=== PATIENT | female | born 2000 | race Caucasian/White ===

== ENCOUNTER 2024-09-23 05:55 | Inpatient (IN) | payer OTHER ==
[2024-09-23] VITALS (12 sets, daily range): BP systolic 104–152; BP diastolic 68–103
[~2024-09-23] VITALS: Ht 175.3 cm; Wt 95.3 kg
[2024-09-23] MEDS ORDERED: PRENATAL TABLE1 EAC1 PO (06:13)
[2024-09-23] MEDS ORDERED: RINGERS SOLUTION,LACTATED 1,000 ML IV SCH (06:15)
[2024-09-23] MEDS ORDERED: AMPICILLIN SODIUM 2,000 MG VIAL IV ONE (06:15)
[2024-09-23 06:49] LABS: HEMATOCRIT 39.6 % (36.0-45.00); MEAN CELL VOLUME 88.1 fL (80.00-100.00); MEAN CORPUSCULAR HEMOGLOBIN 28.9 pg (27.00-32.0); MEAN CORPUSCULAR HGB CONC 32.8 g/dl (32.0-36.0); PLATELET COUNT 231 K/uL (150-450); RED CELL DISTRIBUTION WIDTH 14.8 % (11.5-14.5)
[2024-09-23 06:50] LABS: URINE APPEARANCE Clear; URINE BILIRRUBIN Negative (NEGATIVE); URINE BLOOD Moderate; URINE COLOR Yellow; URINE GLUCOSE Negative (NEGATIVE); URINE KETONE Trace (NEGATIVE); URINE LEUKOCYTE Negative; URINE NITRATE Negative; URINE PROTEIN Trace (NEGATIVE)
[2024-09-23 06:51] LABS: URINE BACTERIA 350.2 uL (0.0-1933); URINE EPITHELIAL CELLS 23.6 uL (0.0-38.8); URINE RBC 83.8 uL (0.0-20.8); URINE WBC 7.8 uL (0.0-23.2)
[2024-09-23 07:02] LABS: URINE CAST 0.45 uL (0.0-1.40)
[2024-09-23 07:20] LABS: INR < 0.93; PARTIAL THROMBOPLASTIN TIME 28.8 SECONDS (22.0-34.0); PROTHROMBIN TIME 9.8 SECONDS (9.0-11.5)
[2024-09-23 07:58] LABS: ALBUMIN 2.9 gm/dL (3.4-5.0); BILIRUBIN TOTAL 0.3 mg/dL (0.3-1.2); CALCIUM 9.1 mg/dL (8.5-10.1); CREATININE SERUM 0.74 mg/dL (0.55-1.02); GFR 97.25; GLOBULINA 3.8 G/DL (2.4-3.5); POTASSIUM 4.47 mEq/L (3.5-5.1); TOTAL PROTEIN 6.7 gm/dL (6.4-8.2)
[2024-09-23] MEDS ORDERED: MORPHINE SULFATE 4 MG/ML VIAL IV ONE (08:45)
[2024-09-23] MEDS ORDERED: OXYTOCIN 500 ML IV SCH (08:45)
[2024-09-23] MEDS ORDERED: AMPICILLIN SODIUM 1,000 MG VIAL IV SCH (09:00)
[2024-09-23 15:22] LABS: HEMATOCRIT 34.2 % (36.0-45.00); HEMOGLOBIN 11.6 g/dL (12.0-15.00); MEAN CELL VOLUME 86.6 fL (80.00-100.00); MEAN CORPUSCULAR HEMOGLOBIN 29.4 pg (27.00-32.0); PLATELET COUNT 235 K/uL (150-450); RED BLOOD COUNT 3.95 M/uL (4.00-6.00); RED CELL DISTRIBUTION WIDTH 14.7 % (11.5-14.5)
[2024-09-23] MEDS ORDERED: LIDOCAINE HCL 1% 10ML VIAL IJ ONE (15:45)
[2024-09-23] MEDS ORDERED: ERYTHROMYCIN BASE OPHT 1GM EACH TUBE OP ONE (15:45)
[2024-09-23] MEDS ORDERED: CARBOPROST TROMETHAMINE 250 MCG/ML AMPUL IM ONE (15:45)
[2024-09-23] MEDS ORDERED: METHYLERGONOVINE MALEATE 0.2 MG/ML AMPUL IV ONE (15:45)
[2024-09-23] MEDS ORDERED: CHLORHEXIDINE GLUCONATE 120 ML BOTTLE TOP ONE (15:45)
[2024-09-23] MEDS ORDERED: OXYTOCIN 1,000 ML IV ONE (15:45)
[2024-09-23] MEDS ORDERED: ACETAMINOPHEN 500 MG GEL..CAP PO PRN (15:45)
[2024-09-24 03:15] VITALS: BP 106/65
[2024-09-24 06:39] VITALS: BP 111/71; O2SAT 99
[2024-09-24 11:53] VITALS: BP 111/77; O2SAT 100
[2024-09-24 12:52] LABS: HEMATOCRIT 24.7 % (36.0-45.00); MEAN CELL VOLUME 88.6 fL (80.00-100.00); MEAN CORPUSCULAR HGB CONC 33.1 g/dl (32.0-36.0); PLATELET COUNT 200 K/uL (150-450); RED BLOOD COUNT 2.78 M/uL (4.00-6.00); RED CELL DISTRIBUTION WIDTH 14.8 % (11.5-14.5)
[2024-09-24 12:53] LABS: HEMOGLOBIN 8.2 g/dL (12.0-15.00); MEAN CORPUSCULAR HEMOGLOBIN 29.4 pg (27.00-32.0)
[2024-09-24 14:34] VITALS: BP 122/69
[2024-09-24 16:13] VITALS: BP 99/61
[2024-09-24] MEDS ORDERED: PNV,CALCIUM 72/IRON/FOLIC ACID 1 TAB TABLET PO SCH (19:41)
[2024-09-24] MEDS ORDERED: FERROUS SULFATE 325 MG TABLET.EC PO SCH (19:42)
[2024-09-25 01:00] VITALS: BP 109/72
[2024-09-25 05:13] VITALS: BP 117/73
[2024-09-25 10:15] VITALS: BP 128/76
[2024-09-25 14:00] VITALS: BP 111/71
== END 2024-09-25 14:19 | disposition home or self-care (01) | DRG 807 ==
LOC: LDR 05:55 → OB/GYN 09-24 14:03
PROVIDERS: Obstetrics & Gynecology; ADMIT Obstetrics & Gynecology; ATTEND Obstetrics & Gynecology
PROC: 10E0XZZ Delivery of Products of Conception, External Approach (ICD-10-PCS; principal; 2024-09-23)
PROC: 0KQM0ZZ Repair Perineum Muscle, Open Approach (ICD-10-PCS; 2024-09-23)
PROC: 4A1HXCZ Monitoring of Products of Conception, Cardiac Rate, External Approach (ICD-10-PCS; 2024-09-23)
DX: O70.1 Second degree perineal laceration during delivery (principal); Z37.0 Single live birth; Z3A.39 39 weeks gestation of pregnancy; Z20.822 Contact with and (suspected) exposure to COVID-19